=== PATIENT | female | born 1960 | race African-American/Black ===

== ENCOUNTER 2020-07-20 20:00 | Emergency (ER) | payer SELFPAY ==
[~2020-07-20] VITALS: Ht 170.2 cm; Wt 73.0 kg
[2020-07-20] MEDS ORDERED: TRAMADOL HCL/ACETAMINOPHEN 37.5/325MG TABLET PO ONE (23:00)
[2020-07-21] MEDS ORDERED: TRAM-529 MT (00:55)
[2020-07-21] MEDS ORDERED: PREG75CA MT (00:57)
[2020-07-21 01:23] VITALS: BP 157/89
== END 2020-07-21 01:26 | disposition home or self-care (01) ==
LOC: ER 20:00
DX: M54.32 Sciatica, left side (principal); I10 Essential (primary) hypertension
CPT/HCPCS: 72100; 73562; 73610; 99284